=== PATIENT | female | born 1955 | race Two or more races ===

== ENCOUNTER 2016-10-30 06:55 | Day surgery (SDC) | payer OTHER ==
[2016-10-30] MEDS ORDERED: LIDOCAINE 2%HCL (LOCAL ANESTH.) INJ 20ML MDV ONE (07:27)
[2016-10-30] MEDS ORDERED: IODIXANOL 320MG/ML 100ML BTL IV ONE (07:32)
[2016-10-30] MEDS ORDERED: ANGIOMAX 250 MG VIAL IV ONE (07:48)
[2016-10-30] MEDS ORDERED: MIDAZOLAM HCL 1MG/1ML-2 ML VIAL ONE (07:48)
[2016-10-30] MEDS ORDERED: fentaNYL CITRATE 100 MCG/2 ML VL ONE (07:48)
[2016-10-30] MEDS ORDERED: SODIUM CHL 0.9% 0 ML ONE (07:49)
[2016-10-30] MEDS ORDERED: ALEN70TA55 PO (08:05)
[2016-10-30] MEDS ORDERED: LISI40TA PO (08:05)
[2016-10-30] MEDS ORDERED: METF-370 PO (08:05)
[2016-10-30] MEDS ORDERED: VERAPAMIL 2.5MG/ML INJ 2ML VIAL IV ONE (08:41)
[2016-10-30] MEDS ORDERED: HEPARIN SODIUM (PORCINE) 5000 UNITS/ML 1ML VIAL ONE (09:49)
== END 2016-10-30 12:22 | disposition home or self-care (01) ==
LOC: CATH 06:55
PROVIDERS: ATTEND Internal Medicine
DX: R94.39 Abnormal result of other cardiovascular function study (principal)
CPT/HCPCS: 82962; 93458; C1769; C1894; J1644; J2250; J3010; J7030; Q9967; 99152; 99153